=== PATIENT | male | born 1970 | race Caucasian/White ===

== ENCOUNTER 2024-07-25 09:25 | Outpatient (REF) | payer OTHER, SELFPAY ==
[2024-07-25 16:04] LABS: Abs Immature Grans 0.05 10^3/uL (0.0-0.06); Absolute Eosinophil Count 0.11 10^3/uL (0.0-0.7); Absolute Lymphocyte Count 0.74 10^3/uL (1.2-3.4); Absolute Neutrophil Count 7.48 10^3/uL (1.2-6.7); Eosinophils % 1.1 %; HCT 40.9 % (40.0-50.0); HGB 13.5 g/dL (13.5-17.5); Immature Grans % 0.5 %; Lymphocytes % 7.7 %; MCH 28.2 pg (27.0-33.0); MCV 85 fL (80-95); MPV 10.5 fL (8.0-11.0); Monocytes % 11.5 %; Neutrophils % 78.2 %; Platelet Count 339 10^3/uL (130-400); RBC 4.79 10^6/uL (4.36-5.78); RDW 13.7 % (11.8-14.1); WBC 9.58 10^3/uL (4.4-10.8)
[2024-07-25 16:43] LABS: ALT 52 U/L (16-63); AST 33 U/L (15-37); Alkaline Phosphatase 129 U/L (46-116); Anion Gap 10.2 mmol/L (3-11); BUN 14 mg/dL (7-18); CO2 26.8 mmol/L (21.0-32.0); CREATININE 1.4 mg/dL (0.70-1.30); Calcium 9.4 mg/dL (8.5-10.1); Calculated LDL 126 mg/dL (<100); Chloride 106 mmol/L (98-107); Cholesterol 213 mg/dL (<200); Estimated GFR 58.99 (mL/min/1.73m2); Glucose 80 mg/dL (74-106); HDL Cholesterol 63 mg/dL (40-60); Potassium 5.1 mmol/L (3.5-5.1); Sodium 143 mmol/L (136-145); Total Protein 7.6 g/dL (6.4-8.2); Triglyceride 122 mg/dL (<150)
[2024-07-25 17:16] LABS: Lipase 28 U/L (<78); NT-proBNP 55 pg/mL (<300)
== END 2024-07-25 09:26 | disposition home or self-care (01) ==
LOC: LBN 09:25
PROVIDERS: Visit Provider Nurse Practitioner Family
DX: R53.83 Other fatigue (principal); R10.11 Right upper quadrant pain
CPT/HCPCS: 80053; 80061; 83690; 83880; 84443; 85025

== ENCOUNTER 2024-08-04 16:22 | Emergency (ER) | payer OTHER, SELFPAY ==
[2024-08-04 16:26] VITALS: BP 151/74; PULSE 96; RESP 18; TEMP 36.9; O2SAT 95
--- NOTE | 2024-08-04 16:44 | DI.CT_ITS ---
Exam(s) CT NECK W EXAM: CT NECK W CLINICAL HISTORY: right upper/cheek swelling. TECHNIQUE: Imaging Protocol: Axial computed tomography images with coronal and sagittal reformatted images were created and reviewed CONTRAST MATERIAL: Intravenous: Omnipaque 350 Contrast volume:100 ml contrast COMPARISON: No exams were available for comparison FINDINGS: Parotids: Normal. Submandibular glands: Normal. Thyroid gland: Normal. Lymph nodes: There are scattered lymph nodes seen along the level one to level three all measuring le ss than 8 mm in short axis diameter which are physiologic in nature. Carotids arteries: Mild plaque at both common carotid bulbs. No significant stenosis or dissection. Vertebral arteries: No significant stenosis or dissection. Soft tissues: Significant soft tissue swelling is noted on the right side of the face from the level of the nose down to the level of the mandible. There is stranding in the surrounding fat. No draina ble abscess collection. The floor the mouth is unremarkable. The tonsils and adenoids are unremarkab le. The epiglottis and vocal cords are within normal limits. Lungs: Marked opacification of the right upper lobe the. increased densities and consolidation also seen in superior segment of the right lower lobe. There is significant right upper lobe volume loss. The aortic arch and visualized portions of the pulmonary arteries appear normal. Mild emphysematou s changes are noted in the left upper lobe. Bones: Degenerative changes of the cervical spine. No destructive rib lesions. Poor dentition. Mul tiple periapical lucencies. Visualized portions of the brain and orbits: Unremarkable. Sinuses and mastoids: Clear. IMPRESSION: Marked soft tissue swelling on the right side of the face without evidence of drainable abscess. Opacification of the right upper lobe and consolidation in the superior aspect of the right lower lob e. Significant right upper lobe volume loss. Clinical correlation recommended. Findings called to Dr. Luna of the emergency department. RADIATION DOSE DELIVERED: Total DLP DATA REPOSITORY: All CT scans at this facility are submitted to the National Radiology Data Registry (NRDR) Dose Index Registry (DIR) with the [employer] ([employer]). RADIATION OPTIMIZATION: All CT scans at this facility use at least one of these dose optimization te chniques: automated exposure control; mA and/or kV adjustment per patient size (includes targeted exa ms where dose is matched to clinical indication); or iterative reconstruction.
--- NOTE | 2024-08-04 16:46 | ED.GENADUL_ITS ---
Discharge Plan Disposition Patient Disposition: Home Condition: Stable Discharge Details Clinical Impression: Angioedema, Facial swelling Primary Care Provider: Lala Daniels ED Provider: Joshua Luna Home Meds and New Rx's Prescriptions: New amoxicillin-pot clavulanate 875-125 mg tablet 1 tab PO BID Qty: 14 0RF prednisone 20 mg tablet 60 mg PO DAILY 4 Days Qty: 12 0RF Continued albuterol sulfate 90 mcg/actuation HFA aerosol inhaler 2 puff inhalation Q6H PRN (Reason: shortness of breath or wheezing) Qty: 8.5 0RF Discontinued lisinopril 10 mg tablet 10 mg PO DAILY Qty: 30 1RF Discharge Instructions Additional Instructions: I suspect your swelling is from your lisinopril called angioedema. there is no abscess or other concerning findings on your CAT scan Stop taking lisinopril and follow-up with your primary care provider within 1 week to discuss starting a new blood pressure medication Take the antibiotic and steroid as prescribed. You are prescribed a antibiotic to cover for possible mild soft tissue infection. If you feel more ill, have difficulty swallowing liquids or breathing return to the emergency department for reevaluation What are KRISSY inhibitors? - KRISSY inhibitors are medicines that are most often used to treat high blood pressure, but are also used for other problems. KRISSY inhibitor is short for angiotensin-converting enzyme inhibitor. Examples of KRISSY inhibitors include enalapril, captopril, and lisinopril. What is angioedema? - Angioedema is the medical term for swelling of the tissue under the skin. This can be caused by different things, including an allergic reaction to certain medicines. KRISSY inhibitors are one type of medicine that can cause this reaction in some people. The swelling can happen within a few weeks of starting the medicine. But in some cases, it can happen even after months or years of taking an KRISSY inhibitor every day without any swelling. Doctors are not sure why this happens. The swelling usually lasts a few days and is not itchy. What part of the body swells? - The swelling can happen on the lips, face, or tongue. It can also affect other parts of the body, including the intestines. HPI General Mode of arrival: ambulatory . Date/Time Provider Initiated Documentation: 08/04/24 16:23 . Limitations to Documentation: no limitations . Information obtained by: patient . History of Present Illness 54 year old M presents to the emergency department with the chief complaint of right sided cheek/upper neck swelling, described as moderate, Quality is described as aching, and is localized to the face. Patient reports no radiation. Patient started experiencing this hour(s) (3) and it has been constant. No relieving factors improve symptom(s), No exacerbating factors reported . Patient notes no other symptoms.. Patient did receive the following treatments prior to arrival, none Related Data Home Medications ?Medication ?Instructions ?Recorded ?Confirmed albuterol sulfate 90 mcg/actuation 2 puff inhalation Q6H PRN 07/25/24 08/04/24 aerosol inhaler shortness of breath or wheezing #8.5 grams amoxicillin 875 mg-potassium 1 tab PO BID #14 tabs 08/04/24 clavulanate 125 mg tablet prednisone 20 mg tablet 60 mg (3 x 20 mg) PO DAILY 4 days 08/04/24 #12 tabs Previous Rx's ?Medication ?Instructions ?Recorded albuterol sulfate 90 mcg/actuation 2 puff inhalation Q6H PRN 07/25/24 aerosol inhaler shortness of breath or wheezing #8.5 grams amoxicillin 875 mg-potassium 1 tab PO BID #14 tabs 08/04/24 clavulanate 125 mg tablet prednisone 20 mg tablet 60 mg (3 x 20 mg) PO DAILY 4 days 08/04/24 #12 tabs Allergies Allergy/AdvReac Type Severity Reaction Status Date / Time lisinopril AdvReac Intermediate Other (See Verified 08/04/24 18:03 Comment) General Stated Complaint: Cellulitis NATHALIA: 3 Review of Systems All systems reviewed & are unremarkable except as noted in HPI and below Constitutional Constitutional: Denies chills, Denies fever(s) and Denies weakness ENT Ears, Nose, Mouth, and Throat: Denies change in voice and Reports other (facial swelling) Cardiovascular Cardiovascular: Denies chest pain and Denies dyspnea Respiratory Respiratory: Denies cough and Denies dyspnea Gastrointestinal Gastrointestinal: Denies abdominal pain, Denies nausea and Denies vomiting Neurologic Neurologic: Denies weakness Psychiatric Psychiatric: Denies depression Exam Const General: no acute distress Orientation: alert HENMT Head: normal to inspection and normocephalic Ears: external ears normal General nose exam: external nose normal Mouth: moist mucous membranes Eyes General: appearance normal, both eyes and all related structures Neck Neck: normal visual inspection Resp Effort & Inspection: normal respiratory effort and able to speak in complete sentences Cardio Rate: regular rate Skin General skin exam: no rashes or lesions noted Neuro General: patient alert and patient oriented x3 Extrem General: normal to inspection Psych Mental Status: mental status grossly normal Course Vital Signs Vital signs: Vital Signs Temperature 36.9 C 08/04/24 16:26 Pulse 96 H 08/04/24 16:26 Respiratory Rate 18 08/04/24 16:26 Blood Pressure 151/74 H 08/04/24 16:26 Pulse Oximetry 95 08/04/24 16:26 Temperature 36.9 C 08/04/24 16:26 Temperature Source Oral 08/04/24 16:26 Pulse 96 H 08/04/24 16:26 Respiratory Rate 18 08/04/24 16:26 Blood Pressure 151/74 H 08/04/24 16:26 Pulse Oximetry 95 08/04/24 16:26 Oxygen Delivery Method Room Air 08/04/24 16:26 Oxygen Flow Rate 0 08/04/24 16:26 Medical Decision Making 54-year-old male with a history of hypertension comes in with 3 hours of worsening right cheek and upper neck swelling. He denies any pain, no dental pain, no difficulty swallowing or breathing. He does have noticeable swelling to the right cheek area on exam, there is no overlying erythema, I do not see any duct stones in his mouth, he has a normal posterior pharynx with a midline uvula. No submandibular swelling or restricted neck movements or pain over the hyoid. I suspect parotitis but given the swelling will obtain CT to evaluate for possible abscess. He has no crepitus to suggest neck Fash. Will also check CBC CMP inflammatory markers and procalcitonin. Patient stable, swelling is improving just a single dose of dexamethasone. Still has no uvular swelling and no stridor or difficulty swallowing. CT shows soft tissue swelling but no abscess or ductal stone. Does have some right upper lobe consolidation on review with patient and history for lung cancer 3 years ago, he denies any difficulty breathing or cough so suspect this is related to his prior treatments. I offered an x-ray but he declined of his chest given he has no symptoms and I feel this is reasonable. I suspect that this is related to his lisinopril which he started in the last couple weeks. I suspect angioedema to the lisinopril. I will cover for possible erysipelas wit [email or web address].h I advised to stop his lisinopril, I also offered to give him a longer for observation but given improvement already he feels well he would like to go home I feel this is reasonable. He will return if anything worsens. Also advised follow-up with his PCP to discuss a new blood pressure medication Differential Diagnosis Differential Diagnosis: Parotitis, abscess Imaging Data Radiologic Study: Attestation: I personally reviewed and interpreted this imaging study as follows: Imaging: CT Scan Radiologist's impression: IMPRESSION: Marked soft tissue swelling on the right side of the face without evidence of drainable abscess. Opacification of the right upper lobe and consolidation in the superior aspect of the right lower lobe. Significant right upper lobe volume loss. Clinical correlation recommended. Findings called to Dr. Luna of the emergency department. Quality:SDOH Health Related Social Needs: No Data to Display PFSH All Active Problems (Updated 08/04/24 @ 18:07 by Joshua Luna MD) Facial swelling (Acute) Angioedema (Acute) Social History Smoking/Tobacco Use Status: Current every day Smoking risk assessment performed?: Yes Alcohol Intake: current Alcohol Intake frequency: a few times a week Alcohol type: beer Drug use: Never Substance use type: does not use PAWSS Have you Been Recently Intoxicated or Drunk Within the Last 30 days?: No Have you Ever Experienced Previous Episodes of Alcohol Withdrawal?: No Have you ever Experienced Withdrawal Seizures?: No Have you ever Experienced Delirium Tremens(DT)s?: No Have you ever undergone Alcohol Rehabilitation Treatment (i.e, inpt ot outpatient treatment programs)?: No Have you ever Experienced Blackouts?: No Have you ever Combined Alcohol with other Downers within the last 90 days?: No Have you ever Combined Alcohol with any other Substance of Abuse during the last 90 days?: No Positive Blood Alcohol level on Presentation? [PCS.BAL]: No Evidence of Increased Autonomic Activity (i.e. HR>120, tremor, sweating, agitation, nausea)?: No Result: 0
[2024-08-04] MEDS: Dexamethasone 10 MG/ML VIAL IVP (16:58)
[2024-08-04 17:04] LABS: Abs Immature Grans 0.06 10^3/uL (0.0-0.06); Absolute Basophil Count 0.08 10^3/uL (0.0-0.2); Absolute Eosinophil Count 0.11 10^3/uL (0.0-0.7); Absolute Lymphocyte Count 1.05 10^3/uL (1.2-3.4); Absolute Monocyte Count 0.97 10^3/uL (0.1-0.8); Absolute Neutrophil Count 5.85 10^3/uL (1.2-6.7); Eosinophils % 1.4 %; HCT 38.7 % (40.0-50.0); HGB 12.9 g/dL (13.5-17.5); Immature Grans % 0.7 %; Lymphocytes % 12.9 %; MCH 27.9 pg (27.0-33.0); MCHC 33.3 % (32.0-36.0); MCV 84 fL (80-95); MPV 9.5 fL (8.0-11.0); Monocytes % 11.9 %; Neutrophils % 72.1 %; Platelet Count 297 10^3/uL (130-400); RBC 4.63 10^6/uL (4.36-5.78); RDW 13.4 % (11.8-14.1); RDW-SD 40.6 fL; WBC 8.12 10^3/uL (4.4-10.8)
[2024-08-04 17:07] LABS: ESR 14 mm/hr (0-20)
[2024-08-04] MEDS: Omnipaque 350 MG/ML 100 ML BTL IJ (17:21)
[2024-08-04] MEDS: Normal Saline - Diluent 50 ML VIAL IJ (17:22)
[2024-08-04 17:23] LABS: ALT 52 U/L (16-63); AST 33 U/L (15-37); Albumin 3.9 g/dL (3.4-5.0); Alkaline Phosphatase 112 U/L (46-116); BUN 19 mg/dL (7-18); Bilirubin, Total 0.67 mg/dL (0.2-1.0); C-Reactive Protein 0.82 mg/dL (<or=0.5); CREATININE 1.4 mg/dL (0.70-1.30); Calcium 9.2 mg/dL (8.5-10.1); Chloride 98 mmol/L (98-107); Estimated GFR 58.99 (mL/min/1.73m2); Glucose 84 mg/dL (74-106); Magnesium 1.8 mg/dL (1.8-2.4); Potassium 4.1 mmol/L (3.5-5.1); Sodium 133 mmol/L (136-145)
[2024-08-04 17:42] LABS: Procalcitonin < 0.10 ng/mL
[2024-08-04] MEDS: Amoxicillin 875/Clav. 125 TAB PO ×2 (18:22)
[2024-08-04 18:23] VITALS: BP 132/58; PULSE 74; RESP 16; O2SAT 98
== END 2024-08-04 18:23 | disposition home or self-care (01) ==
PROVIDERS: Emergency Provider Emergency Medicine; PCP Nurse Practitioner Family
DX: T78.3XXA Angioneurotic edema, initial encounter (principal); T88.7XXA Unspecified adverse effect of drug or medicament, initial encounter; T46.4X5A Adverse effect of angiotensin-converting-enzyme inhibitors, initial encounter
CPT/HCPCS: 36415; 70491; 80053; 84145; 85652; 96374; 99285; 83735; 85025; 86140; J1100; J3490

== ENCOUNTER 2024-08-11 03:31 | Outpatient (CLI) | payer OTHER, SELFPAY ==
[2024-08-11 14:52] LABS: Hemoglobin A1C 5.8 % (<5.7)
[2024-08-11 15:26] LABS: Anion Gap 7.4 mmol/L (3-11); BUN 22 mg/dL (7-18); CO2 28.6 mmol/L (21.0-32.0); CREATININE 1.4 mg/dL (0.70-1.30); Calcium 9.5 mg/dL (8.5-10.1); Chloride 101 mmol/L (98-107); Estimated GFR 58.99 (mL/min/1.73m2); Glucose 89 mg/dL (74-106); Potassium 3.7 mmol/L (3.5-5.1); Sodium 137 mmol/L (136-145); TSH (W/Ref FT4) 3.18 uIU/mL (0.36-3.74)
[2024-08-12 19:45] LABS: HBs Antibody, Quant <3.1 mIU/mL (See Note); Hep B Surface Ab Negative (See Note); Hepatitis B Core Antibody Negative (Negative); Hepatitis B Surface Antigen Negative (Negative)
[2024-08-12 19:49] LABS: Hepatitis C Ab w Rflx HCV PCR Negative (Negative)
[2024-08-12 20:07] LABS: HIV-1/2 Ag & Ab Screen Negative (Negative)
== END 2024-08-11 03:32 | disposition home or self-care (01) ==
LOC: LBO 03:31
PROVIDERS: PCP Nurse Practitioner Family; Visit Provider Nurse Practitioner Family
DX: Z11.4 Encounter for screening for human immunodeficiency virus [HIV] (principal); Z12.5 Encounter for screening for malignant neoplasm of prostate; I10 Essential (primary) hypertension; Z11.59 Encounter for screening for other viral diseases
CPT/HCPCS: 36415; 80048; 84153; 86704; 86706; 86803; 87340; 87389; 83036; 84443